=== PATIENT | female | born 1940 | race Caucasian/White ===

== ENCOUNTER → 2019-04-18 | Outpatient (CLI) | payer MEDICAID, MEDICARE ==
--- NOTE | 2019-04-19 08:20 | RADIOLOGY REPORT (SQ) ---
EXAM DESCRIPTION: MRI LUMBAR SPINE WITHOUT COMPLETED DATE/TIME: 04/18/2019 7:25 pm REASON FOR STUDY: M54.5 LOW BACK PAIN M54.5 LOW BACK PAIN COMPARISON: None. TECHNIQUE: Sagittal and Axial imaging includes T1, T2, STIR and gradient echo sequences. Coronal T2/ HASTE imaging. LIMITATIONS: None. FINDINGS: VISUALIZED UPPER ABDOMEN: Limited evaluation. No acute or suspicious findings suggested. SEGMENTATION: No transitional anatomy. The lowest well-developed disc space is labeled L5-S1. ALIGNMENT: Minimal anterolisthesis at L2-3, L3-4, and L4-5 from facet arthropathy VERTEBRAE: Intact. BONE MARROW: Benign hemangioma in the T12 vertebral body DISC SIGNAL: Diffuse decreased T2 weighted intervertebral disc signal POSTERIOR ELEMENTS: Generally intact. No pars defect evident. HARDWARE: None in the spine. CORD AND CONUS: Normal in size and signal intensity. Conus at the L1-2 level. SOFT TISSUES: No aortic aneurysm seen. No bulky retroperitoneal adenopathy or mass. No paraspinal mas s or fluid. T11-12: Unremarkable T12-L1: Unremarkable L1-L2: Minimal bilateral facet hypertrophy. No central or foraminal stenosis. L2-L3: Mild bilateral facet hypertrophy. Minimal grade 1 anterolisthesis of L2 over L3 related to fa cet arthropathy. Schmorl's node formation in the inferior endplate of L2. Mild central canal narrow ing results from broad diffuse disc bulge, dorsal epidural fat, and moderate bilateral facet hypertro phy. There is minimal bilateral inferior foraminal narrowing without exit L2 nerve root impingement. L3-L4: Minimal grade 1 anterolisthesis of L3 over L4 results from bilateral facet arthropathy. There is mild posterior disc bulging and dorsal epidural fat causing borderline central canal narrowing. Mild bilateral inferior foraminal narrowing without exiting L3 nerve root impingement. L4-L5: Minimal grade 1 anterolisthesis of L4 over L5 results from facet arthropathy. Bulky ligamentu m flavum thickening and broad diffuse posterior disc bulging cause borderline central canal narrowing . At L4-5, a right foraminal disc herniation is present, causing high-grade right L4-5 foraminal narrow ing and impingement on the right exiting L4 nerve root within the neural foramen. This is best shown on axial T2 images 21-23, sagittal image 5, and coronal image 10. Mild left foraminal narrowing is present without exiting L4 nerve root impingement. L5-S1: No central or foraminal stenosis SACRUM: Visualized upper sacrum intact. OTHER: No other significant findings. IMPRESSION: High-grade right foraminal narrowing from a right foraminal disc herniation at L4-5 TECHNICAL DOCUMENTATION: JOB ID: [id number] [employer]- All Rights Reserved Reading location - IP/workstation name: [email or web address]
== END ==
LOC: RAD 18:22
PROVIDERS: ATTEND Physician Assistant
DX: M51.26 Other intervertebral disc displacement, lumbar region (principal); M54.5 Low back pain
CPT/HCPCS: 72148

== ENCOUNTER → 2019-04-20 | Outpatient (CLI) | payer MEDICARE ==
[2019-04-20 10:38] LABS: ANION GAP 10 (5-19); BLOOD UREA NITROGEN 19 mg/dL (7-20); CALCIUM 9.9 mg/dL (8.4-10.2); CARBON DIOXIDE 24 mmol/L (22-30); CHLORIDE 108 mmol/L (98-107); CHOLESTEROL 127.76 mg/dL (0-200); GLUCOSE 109 mg/dL (75-110); POTASSIUM 5.1 mmol/L (3.6-5.0); SODIUM 142.3 mmol/L (137-145); TRIGLYCERIDES 77 mg/dL (<150)
[2019-04-20 11:02] LABS: DIRECT LDL 42 mg/dL (<100)
== END ==
LOC: OD 09:32
PROVIDERS: ATTEND Family Medicine
DX: E03.9 Hypothyroidism, unspecified (principal); E78.2 Mixed hyperlipidemia; I10 Essential (primary) hypertension; Z79.899 Other long term (current) drug therapy
CPT/HCPCS: 36415; 80048; 80061; 83036; 84443

== ENCOUNTER → 2020-08-02 | Outpatient (CLI) | payer MEDICARE, MEDICAID ==
[2020-08-02 12:31] LABS: ANION GAP 10 (5-19); BLOOD UREA NITROGEN 36 mg/dL (7-20); CALCIUM 9.7 mg/dL (8.4-10.2); CARBON DIOXIDE 24 mmol/L (22-30); CHLORIDE 110 mmol/L (98-107); CHOLESTEROL 160.23 mg/dL (0-200); GLUCOSE 93 mg/dL (75-110); POTASSIUM 5.1 mmol/L (3.6-5.0); TRIGLYCERIDES 101 mg/dL (<150)
[2020-08-02 12:42] LABS: DIRECT LDL 67 mg/dL (<100)
== END ==
LOC: OD 10:36
PROVIDERS: ATTEND Family Medicine
DX: E03.9 Hypothyroidism, unspecified (principal); E78.2 Mixed hyperlipidemia; I10 Essential (primary) hypertension; Z79.899 Other long term (current) drug therapy
CPT/HCPCS: 36415; 80048; 80061; 83036; 84443